=== PATIENT | female | born 1960 | race Two or more races ===

== ENCOUNTER 2024-07-02 09:19 | Emergency (ER) | payer MEDICAID, SELFPAY ==
[2024-07-02 09:20] VITALS: BMI 30.2
[2024-07-02 09:25] VITALS: BP 154/90; PULSE 93; RESP 18; TEMP 37.1; O2SAT 96
--- NOTE | 2024-07-02 09:42 | XR_ITS ---
Examination: CT abdomen and pelvis without contrast. Coronal 3-D reconstructions. Sagittal 2-D reconstructions. Date and time of exam:July 02, 2024 0948 hours INDICATIONS: Left-sided flank pain abdominal pain today COMPARISON: November 04, 2019 CTDI: vol (mGy): 8.58 DLP: (mGycm): 155 Technique: Axial images of the abdomen have been obtained, 3 mm slice thickness Intravenous contrast material has not been administered. Low dose protocols were performed. One or more of the following dose reduction techniques were used; automated exposure control, adjustment of the mA and/or KV according to patient size, use of iterative reconstruction technique. Findings: Small pericardial effusion No focal liver or splenic lesions Tiny gallstones No pancreatic mass Soft left renal calcifications, the largest 5 mm No hydronephrosis or ureteral calculi 15 mm fat-containing umbilical hernia No pericecal inflammatory change, normal appendix No diverticulitis Urinary bladder intact Absent uterus No pelvic mass Advanced degenerative disc disease L4-L5 IMPRESSION: Recommend hepatobiliary sonography to confirm gallstones Left renal calculi, no hydronephrosis or ureteral calculi No CT findings of appendicitis bowel obstruction or diverticulitis
[2024-07-02 10:26] LABS: Basophils % (Auto) 0 % (0-2.5); Eosinophils % (Auto) 0 % (0-10); Hematocrit 40.2 % (36.0-46.0); Hemoglobin 13.2 g/dL (12.0-16.0); Immature Granulocytes % (Auto) 0 % (0-0); Immature Granulocytes Auto 0.02 Thou/mm3 (0.00-0.00); Lymphocytes % (Auto) 39 % (10-50); Mean Corpuscular HGB Conc 32.8 g/dl (31.0-37.0); Mean Corpuscular Hemoglobin 30.1 pg (25.0-35.0); Mean Corpuscular Volume 92 fL (80-100); Monocytes # (Auto) 0.4 Thou/mm3 (0.0-0.8); Monocytes % (Auto) 6 % (0-12); Neutrophils # (Auto) 4.3 Thou/mm3 (1.8-7.7); Neutrophils % (Auto) 55 % (37-80); Nucleated Red Blood Cell % 0 /100 WBC (0); Platelet Count 272 Thou/mm3 (140-440); RDW Standard Deviation 44.2 fL (36.4-46.3); Red Blood Count 4.38 Miln/mm3 (4.00-5.20); White Blood Count 7.8 Thou/mm3 (3.6-11.0)
[2024-07-02 10:47] LABS: Alanine Aminotransferase 11 U/L (10-49); Albumin/Globulin Ratio 1.5 (1.2-2.2); Alkaline Phosphatase 99 U/L (46-116); Anion Gap 8 (7-16); Aspartate Amino Transferase 19 U/L (0-34); BUN/Creatinine Ratio 14 Ratio (12-20); Bilirubin,Total 0.7 mg/dL (0.3-1.2); Blood Urea Nitrogen 11 mg/dL (9-23); Calcium 9.3 mg/dL (8.3-10.6); Calcium (Corrected) 9.3 mg/dL (8.5-10.1); Carbon Dioxide 26.4 mMol/L (20.0-31.0); Chloride 101 mMol/L (98-107); Creatinine (Component) 0.8 mg/dL (0.6-1.3); Estimated Creatinine Clearance 68.2 mL/min (>60); Globulin 3.4 gm/dL (2.3-3.5); Glucose 109 mg/dL (74-106); Lipase 61 U/L (12-53); Osmolality,Calculated 270 (275-295); Potassium 3.7 mMol/L (3.4-5.1); Sodium 135 mMol/L (136-145); Total Protein 8.4 gm/dL (5.7-8.2); eGFR > 60 See Note
[2024-07-02 11:58] LABS: Collection Type, Urine Clean Catch
[2024-07-02 12:04] LABS: Bilirubin,Urine Negative (Negative); Blood,Urine 1+ (Negative); Clarity,Urine Clear (Clear/Hazy); Color,Urine Lt-Yellow (Lt Yel-Yel); Culture Indicated,Urine Not Indicated; Glucose, Urine Negative (Negative); Ketones,Urine Negative (Negative); Leukocyte Esterase,Urine Negative (Negative); Nitrite,Urine Negative (Negative); PH,Urine 6.5 (5.0-7.0); Protein,Urine Negative (Neg - Trace); RBC,Urine 7 /hpf (0-3); Squamous Epithelial Cell,Urine 1 /hpf (0-5); Urobilinogen,Urine Negative mg/dL (0.0-1.0); WBC,Urine 1 /hpf (0-5)
--- NOTE | 2024-07-02 12:24 | PD.EDABDPN ---
ED Abdominal Pain RME/HPI General Chief Complaint: Abdominal Pain Stated complaint: ABD. PAIN WITH NAUSEA Time seen by provider: 07/02/24 09:42 Arrival date/time: 07/02/24 09:19 63-year-old female with no significant medical problems presents emergency department today complains of lower abdominal pain and pelvic pain patient postop abdominal pain no chest pain no shortness of breath Limitations: no limitations Related Data Home Medications ?Medication ?Instructions ?Recorded ?Confirmed atorvastatin 20 mg tablet 20 mg PO QDAY 07/09/18 11/04/19 Previous Rx's ?Medication ?Instructions ?Recorded dexamethasone 6 mg tablet 6 mg PO QDAY #7 tabs 11/04/19 (Decadron) esomeprazole magnesium 20 mg 20 mg PO QDAY #30 caps 11/04/19 capsule,delayed release (Nexium) ondansetron HCl 4 mg tablet 4 mg PO Q8H PRN nausea and 11/15/19 (Zofran) vomiting #7 tabs naproxen 500 mg tablet (Naprosyn) 500 mg PO BID PRN pain #60 tabs 05/04/20 cephalexin 500 mg capsule 500 mg PO Q8H #20 caps 02/13/22 famotidine 20 mg tablet (Pepcid) 20 mg PO BID 14 days #28 tabs 07/02/24 ibuprofen 600 mg tablet 600 mg PO Q6H #30 tabs 07/02/24 Allergies Allergy/AdvReac Type Severity Reaction Status Date / Time codeine AdvReac Severe Gastrointestinal Verified 07/02/24 09:23 Upset Review of Systems Review of Systems Systems Reviewed: All systems reviewed, normal except as documented Constitutional Constitutional: Reports system reviewed and no additional complaints, except as documented, Denies fever(s) and Denies headache(s) Eyes Eyes: Reports system reviewed and no additional complaints, except as documented and Denies blurry vision ENT Ears, Nose, Mouth, and Throat: Reports system reviewed and no additional complaints, except as documented, Denies headache(s), Denies nasal congestion and Denies nasal discharge Cardiovascular Cardiovascular: Reports system reviewed and no additional complaints, except as documented, Denies chest pain and Denies dyspnea Respiratory Respiratory: Reports system reviewed and no additional complaints, except as documented, Denies chest congestion, Denies cough and Denies dyspnea Gastrointestinal Gastrointestinal: Reports system reviewed and no additional complaints, except as documented and Reports abdominal pain Integumentary/Breasts Skin/Breast: Reports system reviewed and no additional complaints, except as documented and Denies rash Neurologic Neurologic: Reports system reviewed and no additional complaints, except as documented, Reports as per HPI and Denies headache(s) Past Medical History Past Medical History NEUROLOGIC: Negative Neurological Disorders or Seizures CARDIAC: Positive Hypercholesterolemia; Negative Cardiac Disorders or Congestive Heart Failure RESPIRATORY: Negative Chronic Obstructive Pulmonary Disease (COPD) or Asthma GASTROINTESTINAL: Positive Gastrointestinal Disorders and Gastroesophageal Reflux Disease GENITOURINARY: Positive Genitourinary Disorders; Negative Renal Disease MUSCULOSKELETAL: Positive Musculoskeletal Disorders and Arthritis ENDOCRINE: Negative Endocrine Disorders, Diabetes Mellitus Type 1 or Diabetes Mellitus Type 2 HEMATOLOGIC: Negative Blood Disorders or Sickle Cell Disease PSYCHO/SOCIAL: Positive Anxiety OTHER HISTORY: Negative Autoimmune Disease, Falls, Blood Transfusions, Blood Transfusion Reaction or Anesthesia Reactions Surgical History SURGICAL: Positive Hysterectomy and Tubal Ligation Social History SMOKING STATUS: Never smoker ED Exam General Limitations: Present no limitations General appearance: Present alert and in no apparent distress Head Head exam: Present atraumatic, normocephalic and normal inspection Eye Eye exam: Present normal appearance, PERRL and EOMI; Absent conjunctival injection ENT ENT exam: Present normal exam, normal oropharynx and mucous membranes moist Neck Neck exam: Present normal inspection, full ROM and trachea midline Chest Chest inspection: Present normal inspection and symmetric chest wall rise Respiratory Respiratory exam: Present normal lung sounds bilaterally Cardiovascular Cardiovascular exam: Present regular rate, normal rhythm and normal heart sounds Abdominal Exam Abdominal exam: Present soft, normal bowel sounds and other (Lower abdominal/pelvic pain); Absent distention, tenderness, guarding, rebound or rigidity Extremities Exam Extremities exam: Present normal inspection and full ROM Back Exam Back exam: Present normal inspection and full ROM Neurological Exam Neurological exam: Present alert, oriented X3 and CN II-XII intact Psychiatric Psychiatric exam: Present normal affect and normal mood Skin Skin exam: Present warm, dry, intact and normal color Course Quality Measures none Orders Category Date Time Status CT abdomen pelvis wo con Stat Exams 07/02/24 09:42 Completed CBC Stat Lab 07/02/24 10:00 Completed Comprehensive Metabolic Panel Stat Lab 07/02/24 10:00 Completed Lipase Stat Lab 07/02/24 10:00 Completed UA, C/S IF [Urinalysis, C/S if Indicated] Stat Lab 07/02/24 11:53 Completed Vital Signs Vital signs: Vital Signs Temperature 98.7 F 07/02/24 09:25 Pulse Rate 93 07/02/24 09:25 Respiratory Rate 18 07/02/24 09:25 Blood Pressure 154/90 H 07/02/24 09:25 Pulse Oximetry (%) 96 07/02/24 09:25 Oxygen Delivery Method Room Air 07/02/24 09:25 O2 saturation 96% room air within her limits Abdominal Pain MDM MDM Narrative MDM Narrative:: 63-year-old female with no significant medical problems presents emergency department today complains of lower abdominal pain and pelvic pain patient postop abdominal pain no chest pain no shortness of breath On exam patient alert. Patient is not appear toxic patient Lab work as well as imaging obtained no acute emergent findings noted Patient discharged home in no distress to follow-up with primary care doctor in the next 24 to 48 hours and for any worsening symptoms to return to the ER immediately Patient data External records reviewed:: [facility] previous records Clinical information provided by:: patient Social determinants that could affect healthcare access:: none Patient has the following chronic illnesses:: See history How is presenting disease/condition affected by chronic disease/condition?: uneffected by Evaluation data The following diagnostics were reviewed and interpreted by me:: lab results and radiology exam(s) Lab and/or radiology exams considered but not ordered:: Lab and radiology obtained Interpretation Summary: Reviewed by me Medications / Prescriptions Medications or Prescriptions considered but not ordered:: Given Medication administrations:: Given Consultations Consultation(s) initiated? (list below): No Diagnosis Differential diagnosis abdominal pain: abdominal pain, acute appendicitis, pancreatitis and small bowel obstruction Most likely diagnosis given after review of the tests above:: Abdominal pain Admission Indicated Admission indicated?: not indicated Admission Request Was there a request for admission?: No Disposition Plan Disposition Plan: Discharge Discharge Attestation Discharge Attestation: The patient and all family members were given an opportunity to ask questions and understood the discharge instructions. Discharge instructions specifically effects, indications for sooner follow up or return to the emergency department, and the expected course of current diagnosis. Patient condition: Stable Discharge Plan Plan Patient Disposition: HOME (Self Care) Disposition Comment: Stable Prescriptions/Referrals Prescriptions/Med Rec: New famotidine [Pepcid] 20 mg tablet 20 mg PO BID 14 Days Qty: 28 0RF ibuprofen 600 mg tablet 600 mg PO Q6H Qty: 30 0RF No Action atorvastatin 20 mg Tablet 20 mg PO QDAY naproxen [Naprosyn] 500 mg tablet 500 mg PO BID PRN (Reason: pain) Qty: 60 0RF esomeprazole magnesium [Nexium] 20 mg capsule,delayed release(DR/EC) 20 mg PO QDAY Qty: 30 0RF dexamethasone [Decadron] 6 mg tablet 6 mg PO QDAY Qty: 7 0RF ondansetron HCl [Zofran] 4 mg tablet 4 mg PO Q8H PRN (Reason: nausea and vomiting) Qty: 7 0RF cephalexin 500 mg capsule 500 mg PO Q8H Qty: 20 0RF Referrals: Vanessa Abrams FNP [Primary Care Provider] - In 1 week Problem List Clinical Impression: Abdominal pain, Gallstones Patient/Caregiver Discharge Instructions Education Materials: Abdominal Pain Additional Instructions: Please follow up with your primary care doctor in the next 24-48hrs for any worsening symptoms return here immediately Print Language: Malawian Stand Alone Forms: [place] Award Info., Patient Portal Info Letter DREA/TARAH Supervising Physician DREA/TARAH Supervising Physician: Dr coleman
[2024-07-02 13:11] VITALS: BP 141/86; PULSE 99; RESP 18; TEMP 36.8; O2SAT 98
== END 2024-07-02 13:17 | disposition home or self-care (01) ==
PROVIDERS: Nurse Practitioner Primary Care; Emergency Provider Emergency Medicine; PCP Nurse Practitioner Family
DX: K80.20 Calculus of gallbladder without cholecystitis without obstruction (principal)
CPT/HCPCS: 36415; 74176; 80053; 81001; 83690; 85025; 99284

== ENCOUNTER 2024-07-17 11:56 | Emergency (ER) | payer MEDICAID, SELFPAY ==
[2024-07-17 12:11] VITALS: BP 128/83; PULSE 99; RESP 16; TEMP 37.3; O2SAT 98; BMI 31.0
--- NOTE | 2024-07-17 12:42 | PD.EDRME ---
Rapid Medical Screening Exam RME Arrival date/time: 07/17/24 11:56 63-year-old female presents to the emergency department today for complaints of abdominal pain and rectal pain patient reports she was recently seen here had lab work and imaging which was normal she reports he went another hospital as well and they told her the same thing. Chief Complaint: General Adult/Misc Complain Time Seen by Provider: 07/17/24 12:33 Vital signs: Vital Signs Temperature 99.2 F 07/17/24 12:11 Pulse Rate 99 07/17/24 12:11 Respiratory Rate 16 07/17/24 12:11 Blood Pressure 128/83 07/17/24 12:11 Pulse Oximetry (%) 98 07/17/24 12:11 Oxygen Delivery Method Room Air 07/17/24 12:11
--- NOTE | 2024-07-17 13:54 | PC.NURSE ---
CALLED PT BACK, NO ANSWER AT THIS TIME
--- NOTE | 2024-07-17 14:01 | PC.NURSE ---
patient eloped with [facility], she was called 3 fina 5min apart
== END 2024-07-17 14:02 | disposition left against medical advice (07) ==
LOC: SERX 12:44
PROVIDERS: Emergency Provider Emergency Medicine
DX: R10.9 Unspecified abdominal pain (principal); Z53.29 Procedure and treatment not carried out because of patient's decision for other reasons; K62.89 Other specified diseases of anus and rectum
CPT/HCPCS: 80053; 81001; 83690; 85025; 99281

== ENCOUNTER 2024-07-25 09:06 | Day surgery (SDC) | payer MEDICAID, SELFPAY ==
--- NOTE | 2024-07-24 06:35 | EKG_ITS ---
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
[2024-07-24 11:06] VITALS: BMI 30.9
[2024-07-24 11:10] VITALS: BMI 30.9
[2024-07-24 12:06] LABS: Basophils % (Auto) 0 % (0-2.5); Eosinophils % (Auto) 1 % (0-10); Hematocrit 38.9 % (36.0-46.0); Hemoglobin 13.2 g/dL (12.0-16.0); Immature Granulocytes % (Auto) 0 % (0-0); Immature Granulocytes Auto 0.01 Thou/mm3 (0.00-0.00); Lymphocytes # (Auto) 2.1 Thou/mm3 (1.0-4.8); Lymphocytes % (Auto) 34 % (10-50); Mean Corpuscular HGB Conc 33.9 g/dl (31.0-37.0); Mean Corpuscular Hemoglobin 30.2 pg (25.0-35.0); Mean Corpuscular Volume 89 fL (80-100); Monocytes # (Auto) 0.4 Thou/mm3 (0.0-0.8); Monocytes % (Auto) 6 % (0-12); Neutrophils # (Auto) 3.7 Thou/mm3 (1.8-7.7); Neutrophils % (Auto) 59 % (37-80); Nucleated Red Blood Cell % 0 /100 WBC (0); Platelet Count 268 Thou/mm3 (140-440); RDW Standard Deviation 43.1 fL (36.4-46.3); Red Blood Count 4.37 Miln/mm3 (4.00-5.20); White Blood Count 6.2 Thou/mm3 (3.6-11.0)
[2024-07-24 12:17] LABS: Alanine Aminotransferase 11 U/L (10-49); Albumin, Serum 4.8 gm/dL (3.4-4.8); Albumin/Globulin Ratio 1.4 (1.2-2.2); Alkaline Phosphatase 100 U/L (46-116); Anion Gap 11 (7-16); Aspartate Amino Transferase 17 U/L (0-34); BUN/Creatinine Ratio 17 Ratio (12-20); Bilirubin,Total 0.5 mg/dL (0.3-1.2); Blood Urea Nitrogen 15 mg/dL (9-23); Calcium 9.6 mg/dL (8.3-10.6); Calcium (Corrected) 9.6 mg/dL (8.5-10.1); Carbon Dioxide 26.3 mMol/L (20.0-31.0); Chloride 100 mMol/L (98-107); Creatinine (Component) 0.9 mg/dL (0.6-1.3); Estimated Creatinine Clearance 56.5 mL/min (>60); Globulin 3.5 gm/dL (2.3-3.5); Glucose 100 mg/dL (74-106); Osmolality,Calculated 274 (275-295); Potassium 4.1 mMol/L (3.4-5.1); Sodium 137 mMol/L (136-145); Total Protein 8.3 gm/dL (5.7-8.2); eGFR > 60 See Note
[2024-07-25] VITALS (7 sets, daily range): BP systolic 118–148; BP diastolic 75–92; PULSE 79–105; RESP 12–22; TEMP 36.7–37.2; O2SAT 95–99; BMI 30.3
--- NOTE | 2024-07-25 11:19 | ESOP_ITS ---
Date of Procedure 07/25/24 Pre Op Diagnosis Symptomatic cholelithiasis Post Op Diagnosis Cholelithiasis with cholecystitis Procedure Laparoscopic cholecystectomy Findings Moderately distended gallbladder with multiple small gallstones and chronic cholecystitis Procedure Description Patient was brought into the operating room in supine position. After administration of general endotracheal anesthesia abdomen was prepped and draped in standard surgical manner. A Veress needle was inserted through the umbilicus and pneumoperitoneum was obtained up to 15 mmHg. The Veress needle was then removed, a 5 mm infraumbilical incision was made and the 5mm trocar was inserted. Laparoscopic camera was placed. Under direct visualization a lap aroscopic camera a 10 mm trocar was placed in subxiphoid and two 5 mm trocars placed in right upper quadrant. The gallbladder was identified and was noted to be moderately distended with small gallstones and chronic cholecystitis. It was retracted cephalad and laterally. Dissection started near the infundibulum of gallbladder where cystic duct and gallbladder junction clearly identified. The cystic duct was circumferentially dissected off the peritoneum and surrounding inflammatory tissue. The critical view of safety was clearly demonstrated. Cystic duct was then divided between 2 endoclips proximally and one distally. The cystic artery was similarly dissected and divided. The gallbladder was then from the liver bed using electrocautery. The gallbladder was then placed inside an Endo Catch and removed from the abdomen utilizing subxiphoid trocar site. The area was copiously and thoroughly washed and irrigated, all the fluid was suctioned and the suction fluid returned clear. Hemostasis achieved using electrocautery. Endoclips noted be in place and intact without any bleeding or any leakage. Hemostasis was adequate and satisfactory. The subxiphoid trocar sites fascial defect was closed with 0 Vicryl using Endo Closure device. Instruments and trocars removed, pneumoperitoneum was evacuated and the incisions closed with 4-0 Monocryl in subcuticular fashion. Instrument needle and sponge counts were all reported to be correct X2. Patient tolerated the procedure well, was extubated, breathing spontaneously and without difficulty and was transferred to postanesthesia care in stable condition. Anesthesia GETA and local Pathology / specimen Other (Gallbladder and contents) Estimated Blood Loss 10 Condition Stable Disposition PACU Surgeon Mónica Clarke MD Surgical Staff Operation Date: 07/25/24 11:15 Case Staff SEASONAL GREENERY BUNDLER: Madelyn Barth RN First Assistant: Elsa Curran
--- NOTE | 2024-07-25 11:23 | SUR.PHASEI ---
Pt. arrived to recovery via HEIDI moss, no c/o pain or nausea at this time, eyes closed, responds to verbal commands, lap sites x4 to abdomen, dermabond intact, IV flushed and patent, lung sounds clear, equal expansion angus., pt. receiving 10 liters 02 via oxymask. Report received from Beverley LONGORIA and Madelyn MANRIQUE.
--- NOTE | 2024-07-25 11:40 | SUR.PHASEII ---
Pt. sitting up and taking sips of water, tolerating well, no c/o pain or nausea at this time.
--- NOTE | 2024-07-25 12:10 | SUR.PHASEII ---
Pt. meets criteria for discharge, VSS, no c/o pain or nausea at this time, IV discontinued without complications, lap sites x4 CDI. Discharge instructions provided to pt. and pt.'s daughter, verbalized understanding. Pt. escorted to vehicle with all of belongings by staff.
== END 2024-07-25 12:10 | disposition home or self-care (01) ==
PROVIDERS: PCP Nurse Practitioner Family; Referring Provider Surgery; Visit Provider Surgery
PROC: 0FT44ZZ Resection of Gallbladder, Percutaneous Endoscopic Approach (ICD-10-PCS; CPT 47562; principal; 2024-07-25 11:00)
DX: K80.10 Calculus of gallbladder with chronic cholecystitis without obstruction (principal); Z01.810 Encounter for preprocedural cardiovascular examination
CPT/HCPCS: 47562; 36415; 80053; 85025; 93005; A4217; A4649; J0131; J0694; J1100; J2250; J2405; J2704; J2765; J3010; J3490

== ENCOUNTER 2024-11-25 11:25 | Emergency (ER) | payer MEDICAID, SELFPAY ==
[2024-11-25 11:25] VITALS: BMI 27.4
[2024-11-25 12:03] VITALS: BP 175/81; PULSE 93; RESP 18; TEMP 36.7; O2SAT 97
--- NOTE | 2024-11-25 12:06 | EKG_ITS ---
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
[2024-11-25] MEDS: MECLIZINE HCL 25 MG TABLET 50 MG PO (12:09)
--- NOTE | 2024-11-25 12:10 | PD.EDDIZZY ---
ED Dizzyness RME/HPI General Chief Complaint: Abdominal Pain Stated Complaint: NAUSEA VOMITING, ABD PAIN X2D Time Seen by Provider: 11/25/24 11:33 Source: patient Arrival date/time: 11/25/24 11:25 64-year-old female with a history of hyperlipidemia, presents to the emergency room with a chief complaint of nausea, vomiting, dizziness, epigastric pain x 2 days Mode of arrival: ambulatory Limitations: no limitations Related Data Home Medications ?Medication ?Instructions ?Recorded ?Confirmed atorvastatin 20 mg tablet 20 mg PO QDAY 07/09/18 07/24/24 Previous Rx's ?Medication ?Instructions ?Recorded esomeprazole magnesium 20 mg 20 mg PO QDAY #30 caps 11/04/19 capsule,delayed release (Nexium) docusate sodium 100 mg capsule 100 mg PO BID #30 caps 07/25/24 (Colace) hydrocodone 5 mg-acetaminophen 325 1 tab PO Q6H PRN pain (scale score 07/25/24 mg tablet 7-10) #10 tabs ibuprofen 600 mg tablet 600 mg PO Q8H PRN pain (scale 07/25/24 score 4-6) #15 tabs meclizine 25 mg tablet 25 mg PO BID PRN dizziness #14 tabs 11/25/24 Allergies Allergy/AdvReac Type Severity Reaction Status Date / Time codeine AdvReac Severe Gastrointestinal Verified 11/25/24 11:28 Upset Review of Systems Review of Systems Systems Reviewed: All systems reviewed, normal except as documented Constitutional Constitutional: Reports system reviewed and no additional complaints, except as documented, Denies fatigue, Denies fever(s), Denies headache(s) and Denies weakness Eyes Eyes: Reports system reviewed and no additional complaints, except as documented, Denies blurry vision and Denies change in vision ENT Ears, Nose, Mouth, and Throat: Reports system reviewed and no additional complaints, except as documented, Denies otalgia, Denies headache(s), Denies nasal congestion, Denies throat swelling and Denies vertigo Cardiovascular Cardiovascular: Reports system reviewed and no additional complaints, except as documented, Denies chest pain, Denies dyspnea and Denies dyspnea on exertion Respiratory Respiratory: Reports system reviewed and no additional complaints, except as documented, Denies chest congestion, Denies cough, Denies dyspnea, Denies dyspnea on exertion and Denies wheezing Gastrointestinal Gastrointestinal: Reports system reviewed and no additional complaints, except as documented, Reports abdominal pain, Denies cramping, Reports nausea and Reports vomiting Genitourinary Genitourinary: Reports system reviewed and no additional complaints, except as documented Musculoskeletal Musculoskeletal: Reports system reviewed and no additional complaints, except as documented and Denies back pain Integumentary/Breasts Skin/Breast: Reports system reviewed and no additional complaints, except as documented and Denies wounds Neurologic Neurologic: Reports system reviewed and no additional complaints, except as documented, Denies confusion, Denies headache(s), Denies lack of coordination, Denies vertigo and Denies weakness Psychiatric Psychiatric: Reports system reviewed and no additional complaints, except as documented, Denies anxiety, Denies confusion, Denies depression, Denies paranoia, Denies suicidal ideation and Denies tactile hallucinations Endocrine Endocrine: Reports system reviewed and no additional complaints, except as documented and Denies fatigue Hematologic/Lymphatic Hematologic/Lymphatic: Reports system reviewed and no additional complaints, except as documented and Denies lymphadenopathy Allergic/Immunologic Allergic/Immunologic: Reports system reviewed and no additional complaints, except as documented, Denies throat swelling, Denies urticaria and Denies wheezing Past Medical History Past Medical History NEUROLOGIC: Negative Neurological Disorders or Seizures CARDIAC: Positive Hypercholesterolemia; Negative Cardiac Disorders or Congestive Heart Failure RESPIRATORY: Positive Pneumonia; Negative Chronic Obstructive Pulmonary Disease (COPD) or Asthma GASTROINTESTINAL: Positive Gastrointestinal Disorders (constipation), Gastroesophageal Reflux Disease and Obesity; Negative Hepatitis GENITOURINARY: Negative Genitourinary Disorders or Renal Disease REPRODUCTIVE: Positive Previous Pregnancies MUSCULOSKELETAL: Positive Musculoskeletal Disorders and Arthritis ENT: Positive Cataracts ENDOCRINE: Negative Endocrine Disorders, Diabetes Mellitus Type 1 or Diabetes Mellitus Type 2 HEMATOLOGIC: Negative Blood Disorders or Sickle Cell Disease PSYCHO/SOCIAL: Negative Anxiety OTHER HISTORY: Positive Chicken Pox; Negative Hospitalization, Autoimmune Disease, Shingles, Falls, Blood Transfusions, Blood Transfusion Reaction, Anesthesia Reactions or Cancer Family History FAMILY HISTORY: Negative Family Psychiatric Problems, Family Respiratory Disorders, Family Cardiac Disorders, Family Gastrointestinal Problems, Family Cancer, Family Surgery or Family Anesthesia Reaction Surgical History SURGICAL: Positive Hysterectomy and Tubal Ligation Social History SMOKING STATUS: Never smoker ED Exam General Limitations: Present no limitations General appearance: Present alert and in no apparent distress Head Head exam: Present atraumatic Eye Eye exam: Present normal appearance, PERRL and EOMI ENT ENT exam: Present normal exam, normal oropharynx and mucous membranes moist Neck Neck exam: Present normal inspection, full ROM and trachea midline Chest Chest inspection: Present normal inspection and symmetric chest wall rise Respiratory Respiratory exam: Present normal lung sounds bilaterally Cardiovascular Cardiovascular exam: Present regular rate, normal rhythm and normal heart sounds Abdominal Exam Abdominal exam: Present soft, tenderness and normal bowel sounds Abdominal tenderness: Present epigastrium and mild Extremities Exam Extremities exam: Present normal inspection and full ROM Back Exam Back exam: Present normal inspection and full ROM Neurological Exam Neurological exam: Present alert, oriented X3 and CN II-XII intact Psychiatric Psychiatric exam: Present normal affect and normal mood Skin Skin exam: Present warm, dry, intact and normal color Course Quality Measures none Orders Category Date Time Status EKG (ED ONLY) *Do not use* NOW Care 11/25/24 12:06 Completed EKG (ED Only) Stat Exams 11/25/24 12:06 Draft BNP [B-Type Natriuretic Peptide] Stat Lab 11/25/24 12:25 Completed CBC Stat Lab 11/25/24 12:25 Completed Comprehensive Metabolic Panel Stat Lab 11/25/24 12:25 Completed Troponin I Stat Lab 11/25/24 12:25 Completed Urinalysis Stat Lab 11/25/24 12:44 Completed Urine Culture Stat Lab 11/25/24 12:44 Received Meclizine HCl [Antivert] Med 11/25/24 12:06 Discontinued 50 mg PO X1 ONE Vital Signs Vital signs: Vital Signs Temperature 98.1 F 11/25/24 12:03 Pulse Rate 93 11/25/24 12:03 Respiratory Rate 18 11/25/24 12:03 Blood Pressure 175/81 H 11/25/24 12:03 Pulse Oximetry (%) 97 11/25/24 12:03 Oxygen Delivery Method Room Air 11/25/24 12:03 PROCEDURES: EKG Interpretation #1: Date of EK11/25/24 Rate: 83 Interpretation: Reviewed by me EKG Impression: Normal sinus rhythm Dizziness MDM Narrative MDM Narrative:: 64-year-old female with a history of hyperlipidemia, presents to the emergency room with a chief complaint of nausea, vomiting, epigastric pain x 2 days Patient is hemodynamically stable and in no apparent distress. Physical examination shows no right lower quadrant abdominal tenderness. The patient has had a cholecystectomy. Patient is also complaining of dizziness and lightheadedness. Patient has had multiple episodes of nausea and vomiting. An ENT examination was completed and shows a lot of cerumen impaction. Bilateral ear irrigation was completed the patient was given meclizine with significant improvement to her symptoms Patient was discharged and educated to follow-up with primary care provider in the next 24 to 48 hours and return to the emergency room for any evidence of worsening signs or symptoms Patient data External records reviewed:: [facility] previous records Clinical information provided by:: patient Social determinants that could affect healthcare access:: none Patient has the following chronic illnesses:: No chronic illness How is presenting disease/condition affected by chronic disease/condition?: no chronic disease Evaluation data The following diagnostics were reviewed and interpreted by me:: lab results and radiology exam(s) Lab and/or radiology exams considered but not ordered:: Labs and radiology exams considered and ordered Interpretation Summary: N/A Medications / Prescriptions Medications or Prescriptions considered but not ordered:: Medication given Medication administrations:: Medication Administration History Discontinued Medications Meclizine HCl (Meclizine Hcl 25 Mg Tablet) 50 mg PO X1 ONE Stop: 11/25/24 12:07 Last Admin: 11/25/24 12:09 Dose: 50 mg Documented By: CN Medication given Consultations Consultation(s) initiated? (list below): No Diagnosis Dizziness Differential Diagnosis: benign paroxysmal positional vertigo, orthostatic hypotension and cerebrovascular accident Most likely diagnosis given after review of the tests above:: Vertigo Admission Indicated Admission indicated?: not indicated Admission Request Was there a request for admission?: No Disposition Plan Disposition Plan: Discharge Discharge Attestation Discharge Attestation: The patient and all family members were given an opportunity to ask questions and understood the discharge instructions. Discharge instructions specifically effects, indications for sooner follow up or return to the emergency department, and the expected course of current diagnosis. Patient condition: Stable Discharge Plan Plan Patient Disposition: HOME (Self Care) Prescriptions/Referrals Prescriptions/Med Rec: New meclizine 25 mg tablet 25 mg PO BID PRN (Reason: dizziness) Qty: 14 0RF No Action atorvastatin 20 mg Tablet 20 mg PO QDAY esomeprazole magnesium [Nexium] 20 mg capsule,delayed release(DR/EC) 20 mg PO QDAY Qty: 30 0RF docusate sodium [Colace] 100 mg capsule 100 mg PO BID Qty: 30 0RF ibuprofen 600 mg tablet 600 mg PO Q8H PRN (Reason: pain (scale score 4-6)) Qty: 15 0RF hydrocodone-acetaminophen 5-325 mg tablet 1 tab PO Q6H MDD 4 PRN (Reason: pain (scale score 7-10)) Qty: 10 0RF Problem List Clinical Impression: Vertigo Patient/Caregiver Discharge Instructions Education Materials: ED Dizziness, Uncertain Cause Additional Instructions: Por favor, consulte con [facility] m?dico de cabecera en las pr?ximas 24 a 48 horas. [facility] examen card?aco se encontr? dentro de los l?mites normales. Se envi? el medicamento a [facility] farmacia; rec?jalo y t?hess seg?n lo indicado. Si observa cualquier signo de empeoramiento de los signos o s?ntomas, acuda a urgencias de inmediato. 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 Whiting
[2024-11-25 12:41] LABS: Basophils # (Auto) 0.0 Thou/mm3 (0.0-0.2); Basophils % (Auto) 0 % (0-2.5); Eosinophils # (Auto) 0.0 Thou/mm3 (0.0-0.5); Eosinophils % (Auto) 0 % (0-10); Hematocrit 43.0 % (36.0-46.0); Hemoglobin 13.9 g/dL (12.0-16.0); Immature Granulocytes Auto 0.02 Thou/mm3 (0.00-0.00); Lymphocytes # (Auto) 1.3 Thou/mm3 (1.0-4.8); Lymphocytes % (Auto) 17 % (10-50); Mean Corpuscular HGB Conc 32.3 g/dl (31.0-37.0); Mean Corpuscular Hemoglobin 30.3 pg (25.0-35.0); Mean Corpuscular Volume 94 fL (80-100); Monocytes # (Auto) 0.2 Thou/mm3 (0.0-0.8); Monocytes % (Auto) 3 % (0-12); Neutrophils # (Auto) 6.0 Thou/mm3 (1.8-7.7); Neutrophils % (Auto) 80 % (37-80); Nucleated Red Blood Cell # 0.00 Thou/mm3 (0.00-0.00); Nucleated Red Blood Cell % 0 /100 WBC (0); Platelet Count 230 Thou/mm3 (140-440); RDW Standard Deviation 45.6 fL (36.4-46.3); Red Blood Count 4.58 Miln/mm3 (4.00-5.20); White Blood Count 7.6 Thou/mm3 (3.6-11.0)
[2024-11-25 12:52] LABS: B-Type Natriuretic Peptide < 20 pg/mL (0-100)
[2024-11-25 12:53] LABS: Alanine Aminotransferase 17 U/L (10-49); Albumin, Serum 4.6 gm/dL (3.4-4.8); Albumin/Globulin Ratio 1.3 (1.2-2.2); Alkaline Phosphatase 103 U/L (46-116); Anion Gap 9 (7-16); Aspartate Amino Transferase 22 U/L (0-34); BUN/Creatinine Ratio 11 Ratio (12-20); Bilirubin,Total 0.5 mg/dL (0.3-1.2); Blood Urea Nitrogen 10 mg/dL (9-23); Calcium 9.4 mg/dL (8.3-10.6); Calcium (Corrected) 9.4 mg/dL (8.5-10.1); Carbon Dioxide 25.7 mMol/L (20.0-31.0); Chloride 105 mMol/L (98-107); Creatinine (Component) 0.9 mg/dL (0.6-1.3); Estimated Creatinine Clearance 61.7 mL/min (>60); Globulin 3.5 gm/dL (2.3-3.5); Glucose 170 mg/dL (74-106); Osmolality,Calculated 282 (275-295); Potassium 4.0 mMol/L (3.4-5.1); Sodium 140 mMol/L (136-145); Total Protein 8.1 gm/dL (5.7-8.2); Troponin I < 0.002 ng/mL (0.0-0.045); eGFR > 60 See Note
[2024-11-25 12:57] LABS: Collection Type, Urine Clean Catch
[2024-11-25 13:06] LABS: Bilirubin,Urine Negative (Negative); Blood,Urine 1+ (Negative); Clarity,Urine Clear (Clear/Hazy); Color,Urine Lt-Yellow (Lt Yel-Yel); Glucose, Urine Negative (Negative); Hyaline Casts,Urine < 1 /hpf (0-1); Ketones,Urine Negative (Negative); Leukocyte Esterase,Urine Negative (Negative); Nitrite,Urine Negative (Negative); PH,Urine 5.5 (5.0-7.0); Protein,Urine Negative (Neg - Trace); RBC,Urine 4 /hpf (0-3); Specific Gravity,Urine 1.020 (1.001-1.035); Squamous Epithelial Cell,Urine 5 /hpf (0-5); Urobilinogen,Urine Negative mg/dL (0.0-1.0); WBC,Urine 4 /hpf (0-5)
== END 2024-11-25 14:47 | disposition home or self-care (01) ==
LOC: SERX 15:08
PROVIDERS: Nurse Practitioner Family; Emergency Provider Emergency Medicine
DX: R42 Dizziness and giddiness (principal); H61.23 Impacted cerumen, bilateral; R11.2 Nausea with vomiting, unspecified; E78.5 Hyperlipidemia, unspecified; Z90.49 Acquired absence of other specified parts of digestive tract
CPT/HCPCS: 69209; 36415; 80053; 81001; 83880; 84484; 85025; 87086; 93005; 99283; A9270

== ENCOUNTER → 2025-02-19 | Outpatient (CLI) | payer MEDICAID, SELFPAY ==
--- NOTE | 2025-02-19 16:15 | XR_ITS ---
Examination: MRI brain without intravenous contrast. Date and time of exam: February 19, 2025, 1702 hours INDICATIONS: Headaches and dizziness episodes of blurred vision 2 years Technique: Multiple axial and sagittal images of the brain obtained. Siemens high-resolution 1.5 Rajwinder short bore scanners utilized. Sagittal sections, T1-weighted, TR 500, TE 14, are performed. Axial sections proton-density and T2-weighted have been obtained. Inversion recovery axial images, TR 9, 260, TE 111, TI 2500. Diffusion weighted images, axial sections, TR 4800, TE 128, B value 1000 Axial sections, ADC map, TR 4800, TE 128 Findings: Enlargement of the sella turcica is not present. The optic chiasm and infundibular are not remarkable. Prepontine and interpeduncular cisterns are not enlarged. There is no localized enlargement of the medulla or grace. Fourth ventricle and cerebellar tonsils appear normal in position. No subacute area of hemorrhage density is seen. Mass in the cerebellopontine angle region is not evident. Globes symmetrical. Orbital musculature including medial lateral rectus muscles do not exhibit abnormality. Diffusion-weighted images demonstrate no focus of restricted diffusion. Increased white matter signal mild Mass effect upon the ventricular system is not identified. Impression: Negative for acute hemorrhage, mass effect or midline shift No acute infarct Mild chronic microvascular white matter change No acoustic neurinoma noted on this noncontrast study
== END | disposition home or self-care (01) ==
LOC: SMRI 15:28
PROVIDERS: PCP Family Medicine; Referring Provider Family Medicine; Visit Provider Family Medicine
DX: R90.82 White matter disease, unspecified (principal)
CPT/HCPCS: 70551